=== PATIENT | female | born 1980 | race Asian ===

== ENCOUNTER 2021-09-04 07:14 | Emergency (ER) | payer OTHER, SELFPAY ==
[2021-09-04] VITALS (10 sets, daily range): BP systolic 102–132; BP diastolic 57–74; PULSE 66–80; RESP 16–18; TEMP 36.6; O2SAT 98–100; BMI 25.0
--- NOTE | 2021-09-04 07:40 | ED.LOWEXIN ---
HPI - Extremity Injury (Lower) General Chief Complaint: Extremity Injury, Lower Stated Complaint: fell and hurt right leg Time Seen by Provider: 09/04/21 07:25 Source: patient Mode of arrival: Ambulatory History of Present Illness HPI Narrative: Patient is a 41-year-old female healthy who presents with right knee pain. She said she was walking her dog this morning a big husky dog was extremely excited and knocked her down into a tree. Complaining of right knee pain mostly medial goes into her thigh as well. No hip pain difficult to ambulate no numbness or tingling she has not had anything yet for pain Related Data Previous Rx's Medication Instructions Recorded hydrocodone 5 mg-acetaminophen 325 1 tab PO Q6H PRN pain #10 tabs 09/04/21 mg tablet Allergies Allergy/AdvReac Type Severity Reaction Status Date / Time peanut Allergy Intermediate Verified 09/04/21 07:26 Review of Systems Review of Systems Narrative: GENERAL: Denies chills,fever HEENT: Denies throat pain RESPIRATORY: Denies dyspnea, cough, wheezing CARDIOVASCULAR: Denies chest pain, palpitations GASTROINTESTINAL: Denies nausea, vomiting MUSCULOSKELETAL: see HPI SKIN: No rash, no laceration, no pruritus NEUROLOGIC: Denies weakness, dizziness, headache, numbness 8 point review of systems is negative except for those stated above and HPI Patient History Social History Smoking Status: Never smoker Smoking Status: Never smoker Substance Use Type: does not use Exam Initial Vital Signs Initial Vital Signs: Vital Signs Pulse Rate 71 09/04/21 07:21 Pulse Oximetry 100 09/04/21 07:21 GENERAL: Well-appearing, well-nourished and in no acute distress. CARDIOVASCULAR: peripheral pulses in tact, cap refill <2 sec RESPIRATORY: No respiratory distress, speaks in full sentences without difficulty EXTREMITIES: Normal range of motion, no clubbing or edema. Neurovascularly intact Right lower extremity extremely tender in her right knee mostly medial tracks up into the right thigh. Knee is stable but very tender to touch. hip and pelvis are stable no ankle injury distal pedal pulse present and strong. Calf is soft NEUROLOGICAL: Cranial nerves II through XII grossly intact. Normal gait and speech. SKIN: Warm, dry, no petechiae, no rashes or lesions. Course Orders Ordered: ED Orders 09/04/21 07:44 XR knee RT 3V Stat 09/04/21 09:03 CT LE RT wo con Stat Discontinued Medications Hydromorphone HCl (Hydromorphone 2 Mg Inj) 1 mg SUBCUT NOW ONE Stop: 09/04/21 08:27 Last Admin: 09/04/21 09:09 Dose: 1 mg Documented By: HORACIO Ibuprofen (Ibuprofen 400 Mg Tablet) 800 mg PO NOW ONE Stop: 09/04/21 07:45 Last Admin: 09/04/21 07:52 Dose: 800 mg Documented By: HORACIO Vital Signs Vital signs: Vital Signs - 8 hr 09/04/21 07:27 09/04/21 07:21 09/04/21 07:22 Temperature 98 F Pulse Rate 69 71 Respiratory Rate 18 Blood Pressure 132/63 132/63 Pulse Oximetry 100 100 Oxygen Delivery Method Room Air 09/04/21 07:22 09/04/21 07:30 09/04/21 07:30 Temperature Pulse Rate 71 74 Respiratory Rate Blood Pressure 102/57 L Pulse Oximetry 100 100 Oxygen Delivery Method 09/04/21 08:00 09/04/21 08:00 09/04/21 08:30 Temperature Pulse Rate 71 Respiratory Rate Blood Pressure 110/62 117/71 Pulse Oximetry 100 Oxygen Delivery Method 09/04/21 08:30 09/04/21 09:00 09/04/21 09:01 Temperature Pulse Rate 66 74 Respiratory Rate Blood Pressure 116/57 L Pulse Oximetry 100 98 Oxygen Delivery Method 09/04/21 09:01 09/04/21 10:33 09/04/21 09:32 Temperature Pulse Rate 72 75 Respiratory Rate 16 Blood Pressure 122/74 116/63 Pulse Oximetry 98 98 Oxygen Delivery Method Room Air 09/04/21 09:32 Temperature Pulse Rate 80 Respiratory Rate Blood Pressure Pulse Oximetry 98 Oxygen Delivery Method MDM - Extremity Injury (Lower) Imaging Data Extremity x-ray #1: Radiologist's Impression: ?KapilJesus MR#: [id number] : 1980 Acct:[id number] Age/Sex: 41 / F Date of Service: 09/04/21 Loc: ED Accession Number: [id number] ?? Procedure: XR knee RT 3V Ordering Provider: Brigitte Caal D.O. PROCEDURE:? XR KNEE RT 3V ? INDICATIONS:? pain. ? TECHNIQUE:? 3 views of the knee were acquired.? ? COMPARISON:? None. ? FINDINGS:? ? Bones:? Possible cortical step-off versus artifact involving the lateral tibial plateau.? No suspicious bony lesions.? ? Soft tissues:? No joint effusion.? No suspicious soft tissue calcifications.? ? ? IMPRESSION:? Possible lateral tibial plateau fracture.? Recommend AP and lateral weight-bearing views or CT scan for additional evaluation. ? ? Dictated by: Nicole Ulrich MD, PhD on 09/04/2021 at 8:57 ? ? CT LE: Radiologist's Impression: Accession Number: [id number] ?? Procedure: CT LE RT wo con Ordering Provider: Brigitte Caal D.O. PROCEDURE:? CT LE RT WO CON ? INDICATIONS:? ?? Tibial plateau ? TECHNIQUE:? Noncontrast 1-1.5 mm axial sections acquired from the mid-patella to the proximal tibia, with coronal and sagittal reformats.? ? COMPARISON:? None. ? FINDINGS:? Image quality:? Excellent.? ? Bones:? Right knee alignment is anatomic.? No acute fracture or dislocation is seen.? No suspicious intraosseous lesion.? Mild medial femoral tibial compartment joint space narrowing and subchondral sclerosis is seen. ? Soft tissues:? There is no significant joint effusion.? No intra-articular loose bodies.? Distal quadriceps tendon and patellar tendon are intact.? Anterior and posterior cruciate ligaments are grossly intact.? No abnormal soft tissue calcifications. ? ? IMPRESSION:? 1. No acute right knee fracture or dislocation.? Radiograph finding of subtle cortical irregularity involving lateral tibial plateau likely represent a nutrient canal.? No suspicious intraosseous lesion.? Mild medial femoral tibial compartment joint space narrowing. 2. No significant joint effusion.? No abnormal soft tissue calcifications.? No gross full-thickness tendon rupture. ? ? ? Dictated by: Chuy Porras M.D. on 09/04/2021 at 9:38 ?? MDM Narrative Medical decision making narrative: Patient is having significant amount of pain medial. X-ray showed possible tibial plateau fracture however CT did not confirm any fracture. This brain a. She may actually require MRI as an outpatient. Pain is much better after knee immobilizer and pain medication. Discharge Plan Departure Patient Disposition: Home Clinical Impression: Right knee sprain Instructions: DI for Knee Sprain Activity Restrictions/Additional Instructions: *You have been diagnosed with right knee sprain *What to do: At this time no evidence of fracture. Knee brace and crutches elevate ice and pain medication. You may need an outpatient MRI if it is not getting better. Wear knee brace as needed probably for about 1-2 weeks sleep in it may shower in it if needed *Continue to take medications as directed [place] 1 tablet every 6 hours if needed for severe pain Motrin 800 mg every 8 hours if needed for [id number] pain *Follow up with your primary care provider in 2-3 days or call [phone] *Return to ER if you should have increasing pain swelling numbness tingling weakness or any new, worsening or concerning symptoms CONTROLLED SUBSTANCE DISCHARGE (Narcotoic/benzodiazepine/Flexeril/Phenergan) 1. You have been prescribed narcotic medications, it does have acetaminophen/Tylenol/paracetamol in it, DO NOT TAKE MORE THAN 4,00mg in 24 hours of Tylenol. TRAMADOL DOES NOT CONTAIN TYLENOL 2. Please understand that we cannot provide further refills of narcotics, benzodiazepines or controlled substances through the ED and her pain management will need to be through your provider. 3. While on these medications you cannot drive or operate heavy machinery. 4. You cannot sign legal documents or perform any duties such as this. 5. As long as you're taking opiate pain medications he should also be taking a stool softener such as Colace, Dulcolax, MiraLAX or prune juice, to help avoid constipation. Prescriptions: New hydrocodone-acetaminophen 5-325 mg tablet 1 tab PO Q6H PRN (Reason: pain) Qty: 10 0RF Referrals: [facility] [Provider Group] Visit Report Forms: Patient Portal/API
--- NOTE | 2021-09-04 07:44 | DI.RAD.S_ITS ---
PROCEDURE: XR KNEE RT 3V INDICATIONS: pain. TECHNIQUE: 3 views of the knee were acquired. COMPARISON: None. FINDINGS: Bones: Possible cortical step-off versus artifact involving the lateral tibial plateau. No suspicious bony lesions. Soft tissues: No joint effusion. No suspicious soft tissue calcifications. IMPRESSION: Possible lateral tibial plateau fracture. Recommend AP and lateral weight-bearing views or CT scan for additional evaluation. Dictated by: Nicole Ulrich MD, PhD on 09/04/2021 at 8:57 Approved by: Nicole Ulrich MD, PhD on 09/04/2021 at 9:00
[2021-09-04] MEDS: IBUPROFEN 400 MG TABLET 800 MG PO (07:52)
--- NOTE | 2021-09-04 09:03 | DI.CT.S_ITS ---
PROCEDURE: CT LE RT WO CON INDICATIONS: ? Tibial plateau TECHNIQUE: Noncontrast 1-1.5 mm axial sections acquired from the mid-patella to the proximal tibia, with coronal and sagittal reformats. COMPARISON: None. FINDINGS: Image quality: Excellent. Bones: Right knee alignment is anatomic. No acute fracture or dislocation is seen. No suspicious intraosseous lesion. Mild medial femoral tibial compartment joint space narrowing and subchondral sclerosis is seen. Soft tissues: There is no significant joint effusion. No intra-articular loose bodies. Distal quadriceps tendon and patellar tendon are intact. Anterior and posterior cruciate ligaments are grossly intact. No abnormal soft tissue calcifications. IMPRESSION: 1. No acute right knee fracture or dislocation. Radiograph finding of subtle cortical irregularity involving lateral tibial plateau likely represent a nutrient canal. No suspicious intraosseous lesion. Mild medial femoral tibial compartment joint space narrowing. 2. No significant joint effusion. No abnormal soft tissue calcifications. No gross full-thickness tendon rupture. Dictated by: Chuy Porras M.D. on 09/04/2021 at 9:38 Approved by: Chuy Porras M.D. on 09/04/2021 at 9:40
[2021-09-04] MEDS: HYDROMORPHONE 2 MG INJ 1 MG SUBCUT (09:09)
--- NOTE | 2021-09-04 09:11 | PC.NURSE ---
temporarily splinted knee with pillow supporting and coban wrap, temp splint to be used for ct, meds for pain being given im. knee immobilizer to be applied after ct.
== END 2021-09-04 10:50 | disposition home or self-care (01) ==
PROVIDERS: Emergency Provider Emergency Medicine
DX: S13.9XXA Sprain of joints and ligaments of unspecified parts of neck, initial encounter (principal); W19.XXXA Unspecified fall, initial encounter
CPT/HCPCS: 73562; 73700; 96372; 99283; J1170

== ENCOUNTER 2022-10-28 06:52 | Emergency (ER) | payer OTHER, SELFPAY ==
[2022-10-28 07:07] VITALS: BP 127/70; PULSE 79; RESP 16; TEMP 37; O2SAT 99; BMI 25.2
--- NOTE | 2022-10-28 07:21 | DI.US.S_ITS ---
PROCEDURE: US PELVIC COMPLETE INDICATIONS: LMP 7/5 vag bleeding TECHNIQUE: Real-time scanning was performed of the pelvic organs, with image documentation. Additional endovaginal scanning was necessary due to incomplete visualization of the adnexal and endometrial structures by transabdominal scanning. COMPARISON: None. FINDINGS: Uterus: Uterus is anteverted and normal in size at 8.3 x 6.2 x 5.1 cm. The myometrium is homogeneous. The endometrium measures 7.0 mm combined thickness. There is a focus of heterogeneous echogenicity within the mid anterior subserosal region of the uterus measuring 11 x 11 x 10 mm. Ovaries: The right ovary measures 3.9 x 2.1 x 2.4 cm. The left ovary measures 3.4 x 1.5 by 1.4 cm. There is a septated simple cyst within the right ovary measuring 1.5 x 1.5 x 1.4 cm. Other: No pathologic free abdominal or pelvic fluid. IMPRESSION: Septated right ovarian cyst. Focus of heterogeneous echogenicity within the uterus suggestive of fibroids. We strive to produce accurate, complete, and clear reports of imaging services. To assist us in improving patient care, this report was composed using standard report templates and voice recognition software. Therefore, it may contain abnormal punctuation, insertions and/or omissions. Occasional wrong-word or sound-alike substitutions may occur. Though we review the report and make efforts to correct it, we do recommend that the report be read carefully in proper context to recognize any text inaccuracies. Dictated by: Dominique Newton M.D. on 10/28/2022 at 8:32 Approved by: Dominique Newton M.D. on 10/28/2022 at 8:34
[2022-10-28 07:48] LABS: Add Manual Diff / Slide Review NO; Basophils Absolute Auto 0 /uL (0-100); Basophils Percent Auto 0.4 % (0-2); Eosinophils Absolute Auto 200 /uL (0-450); Eosinophils Percent Auto 1.7 % (2-4); Hematocrit 40.6 % (36-46); Hemoglobin 13.7 g/dL (12.0-16.0); Lymphocytes Absolute Auto 2100 /uL (1100-4500); Lymphocytes Percent Auto 22.2 % (25-40); Mean Corpuscular HGB Conc 33.8 % (30-36); Mean Corpuscular Hemoglobin 29.9 PG (26-34); Mean Corpuscular Volume 88.6 fL (80-100); Monocytes Absolute Auto 600 /uL (0-900); Monocytes Percent Auto 6.7 % (3-14); Neutrophils Absolute Auto 6600 /uL (1500-7000); Platelet Count 297 X10^3/uL (150-400); Red Blood Cell Count 4.59 X10^6/uL (4.0-5.2); Red Cell Distribution Width 13.7 % (11.6-14.8); White Blood Cell Count 9.6 X10^3/uL (4.5-11.0)
--- NOTE | 2022-10-28 08:00 | ED_ITS ---
HPI - Female Genitourinary General Chief complaint: OB/Uterine Contractions Stated complaint: heavy menstral bleeding, ABD pain Time Seen by Provider: 10/28/22 07:06 Mode of arrival: Family Vehicle History of Present Illness HPI Narrative: Patient is a healthy 42-year-old female presenting today with vaginal bleeding in early . She reports that she found out she was and a home test 2 weeks ago. This yesterday she started having some spotting and today pretty heavy vaginal bleeding and passed some tissue. She is having some cramping she is quite tearful. No dizziness or lightheadedness. Related Data Previous Rx's Medication Instructions Recorded hydrocodone 5 mg-acetaminophen 325 1 tab PO Q6H PRN pain #10 tabs 09/04/21 mg tablet cephalexin 500 mg capsule 500 mg PO BID 5 days #10 caps 10/28/22 Allergies Allergy/AdvReac Type Severity Reaction Status Date / Time peanut Allergy Intermediate Verified 10/28/22 07:10 Review of Systems Review of Systems ROS Unobtainable: All systems reviewed & are unremarkable except as noted in HPI and below Patient History Substance Use Type: does not use Exam Initial Vital Signs Initial Vital Signs: Vital Signs Temperature 98.6 F 10/28/22 07:07 Pulse Rate 79 10/28/22 07:07 Respiratory Rate 16 10/28/22 07:07 Blood Pressure 127/70 10/28/22 07:07 Pulse Oximetry 99 10/28/22 07:07 Oxygen Delivery Method Room Air 10/28/22 07:07 GENERAL: Alert tearful 42-year-old female and in no acute distress. HEENT: Head atraumatic,EOMI, pupils reactive, face symmetric, moist mucous membranes CARDIOVASCULAR: Regular rate and rhythm without murmurs, rubs or gallops. RESPIRATORY: Breath sounds equal bilaterally, no wheezes rales or rhonchi. ABDOMEN: Soft, nontender. Normoactive bowel sounds all 4 quadrants. No g uarding or rebound. Mild lower abdominal pain and tenderness EXTREMITIES: Normal range of motion, no clubbing or edema. Neurovascularly intact NEUROLOGICAL: Alert and oriented x4. SKIN: Warm, dry, no laceration, no petechiae, no rashes or lesions. Course Orders Ordered: Discontinued Medications Morphine Sulfate (Morphine 2 Mg/Ml Inj) 2 mg IV NOW ONE Stop: 10/28/22 07:30 Vital Signs Vital signs: Vital Signs - 8 hr 10/28/22 07:07 Temperature 98.6 F Pulse Rate 79 Respiratory Rate 16 Blood Pressure 127/70 Pulse Oximetry 99 Oxygen Delivery Method Room Air MDM - Female Genitourinary Lab Data 10/28/22 07:38 10/28/22 07:38 Labs: Lab Results 10/28/22 10/28/22 10/28/22 Range/Units 07:38 07:38 07:38 WBC 9.6 (4.5-11.0) X10^3/uL RBC 4.59 (4.0-5.2) X10^6/uL Hgb 13.7 (12.0-16.0) g/dL Hct 40.6 (36-46) % MCV 88.6 (80-100) fL MCH 29.9 (26-34) PG MCHC 33.8 (30-36) % RDW 13.7 (11.6-14.8) % Plt Count 297 (150-400) X10^3/uL Neut % (Auto) 69.0 (50-75) % Lymph % (Auto) 22.2 L (25-40) % [place] % (Auto) 6.7 (3-14) % Eos % (Auto) 1.7 L (2-4) % Baso % (Auto) 0.4 (0-2) % Neut # (Auto) 6600 (0753-3585) /uL Lymph # (Auto) 2100 (1481-2828) /uL [place] # (Auto) 600 (0-900) /uL Eos # (Auto) 200 (0-450) /uL Baso # (Auto) 0 (0-100) /uL Sodium 137 (137-145) mmol/L Potassium 3.7 (3.4-5.1) mmol/L Chloride 105 (98-107) mmol/L Carbon Dioxide 22 (22-32) mmol/L BUN 9 (7-17) mg/dL Creatinine 0.66 (0.52-1.04) mg/dL Estimated GFR > 60 (>60) mL/min BUN/Creatinine Ratio 13.6 (6-22) Glucose 101 H (70-100) mg/dL Calcium 8.9 (8.4-10.2) mg/dL Total Bilirubin 0.4 (0.2-1.3) mg/dL AST 24 (14-36) IU/L ALT 16 (<35) IU/L Alkaline Phosphatase 80 (38-126) U/L Total Protein 8.0 (6.3-8.2) g/dL Albumin 4.6 (3.5-5.0) g/dL Globulin 3.4 (1.7-4.1) g/dL Albumin/Globulin Ratio 1.4 (1.0-2.8) HCG, Quant 2211.7 mIU/mL Urine RBC (0-5/HPF) Urine WBC (0-5/HPF) Ur Squamous Epith Cells (0-5/HPF) Urine Bacteria (None) Ur Culture Indicated? Blood Type O Positive Antibody Screen Negative 10/28/22 Range/Units 09:00 WBC (4.5-11.0) X10^3/uL RBC (4.0-5.2) X10^6/uL Hgb (12.0-16.0) g/dL Hct (36-46) % MCV (80-100) fL MCH (26-34) PG MCHC (30-36) % RDW (11.6-14.8) % Plt Count (150-400) X10^3/uL Neut % (Auto) (50-75) % Lymph % (Auto) (25-40) % [place] % (Auto) (3-14) % Eos % (Auto) (2-4) % Baso % (Auto) (0-2) % Neut # (Auto) (3957-3983) /uL Lymph # (Auto) (4604-3431) /uL [place] # (Auto) (0-900) /uL Eos # (Auto) (0-450) /uL Baso # (Auto) (0-100) /uL Sodium (137-145) mmol/L Potassium (3.4-5.1) mmol/L Chloride (98-107) mmol/L Carbon Dioxide (22-32) mmol/L BUN (7-17) mg/dL Creatinine (0.52-1.04) mg/dL Estimated GFR (>60) mL/min BUN/Creatinine Ratio (6-22) Glucose (70-100) mg/dL Calcium (8.4-10.2) mg/dL Total Bilirubin (0.2-1.3) mg/dL AST (14-36) IU/L ALT (<35) IU/L Alkaline Phosphatase (38-126) U/L Total Protein (6.3-8.2) g/dL Albumin (3.5-5.0) g/dL Globulin (1.7-4.1) g/dL Albumin/Globulin Ratio (1.0-2.8) HCG, Quant mIU/mL Urine RBC 0-1/hpf (0-5/HPF) Urine WBC 0-1/hpf (0-5/HPF) Ur Squamous Epith Cells 0-1 /hpf (0-5/HPF) Urine Bacteria Many (>30) H (None) Ur Culture Indicated? Specimen cultured Blood Type Antibody Screen Urine Dip Bedside Urine Occult Blood + Bedside Urine pH 6 Bedside Urine Nitrite + Positive Imaging Data US - OB: Radiologist's Impression: PROCEDURE:? US PELVIC COMPLETE ? INDICATIONS:? LMP 7/5 vag bleeding ? TECHNIQUE:? Real-time scanning was performed of the pelvic organs, with image documentation.? Additional endovaginal scanning was necessary due to incomplete visualization of the adnexal and endometrial structures by transabdominal scanning.? ? COMPARISON:? None. ? FINDINGS:? ?? Uterus:? Uterus is anteverted and normal in size at 8.3 x 6.2 x 5.1 cm. The myometrium is homogeneous. ? The endometrium measures 7.0 mm combined thickness.? There is a focus of heterogeneous echogenicity within the mid anterior subserosal region of the uterus measuring 11 x 11 x 10 mm. ? Ovaries:? The right ovary measures 3.9 x 2.1 x 2.4 cm. The left ovary measures 3.4 x 1.5 by 1.4 cm.? There is a septated simple cyst within the right ovary measuring 1.5 x 1.5 x 1.4 cm. ? Other:? No pathologic free abdominal or pelvic fluid. ? ? IMPRESSION:? Septated right ovarian cyst. ? Focus of heterogeneous echogenicity within the uterus suggestive of fibroids. ? We strive to produce accurate, complete, and clear reports of imaging services. To assist us in improving patient care, this report was composed using standard report templates and voice recognition software. Therefore, it may contain abnormal punctuation, insertions and/or omissions. Occasional wrong-word or sound-alike substitutions may occur. Though we review the report and make efforts to correct it, we do recommend that the report be read carefully in proper context to recognize any text inaccuracies. ? ? Dictated by: Dominique Newton M.D. on 10/28/2022 at 8:32 ? ? Approved by: Dominique Newton M.D. on 10/28/2022 at 8:34 ? MDM Narrative Medical decision making narrative: Patient 42-year-old female presents today with probable miscarriage. She passed tissue hCG today is 2211, ultrasound does not show any IUP or ectopic. But does show a right ovarian cyst. She has minimal pain she reports that bleeding has subsided significantly. Vitals are stable. She does have nitrates in her urine will see her for a UTI. She is O positive no need for RhoGAM today. Recommend that she have repeat hCG as an outpatient. Discharge Plan Departure Patient Disposition: Home Clinical Impression: Complete miscarriage, UTI (urinary tract infection) Instructions: DI for Miscarriage, DI for Urinary Tract Infection (UTI) Activity Restrictions/Additional Instructions: HCG 2211 *You have been diagnosed with miscarriage, UTI *What to do: I am so sorry for your loss. You may continue to have some bleeding and cramping Need HCG repeated in 48 hours *Continue to take medications as directed Tylenol 1000 mg every 6 hours Motrin 600 mg every 6 hours Cephalexin 500 mg twice a day for 5 days *Follow up with your primary care provider in 2-3 days or call [phone] *Return to ER if you should have persistent bleeding more than 2 super pads in 1 hour, dizziness lightheadedness severe pain or any new, worsening or concerning symptoms Prescriptions: New cephalexin 500 mg capsule 500 mg PO BID 5 Days Qty: 10 0RF No Action hydrocodone-acetaminophen 5-325 mg tablet 1 tab PO Q6H PRN (Reason: pain) Qty: 10 0RF Referrals: Cherise Melchor PA-C [Primary Care Provider] - Stand Alone Forms: Patient Portal/API, Work Release Note
[2022-10-28 08:04] LABS: Alanine Aminotransferase 16 IU/L (<35); Albumin 4.6 g/dL (3.5-5.0); Albumin Globulin Ratio 1.4 (1.0-2.8); Alkaline Phosphatase 80 U/L (38-126); Aspartate Aminotransferase 24 IU/L (14-36); BUN Creatinine Ratio 13.6 (6-22); Bilirubin Total 0.4 mg/dL (0.2-1.3); Blood Urea Nitrogen 9 mg/dL (7-17); Calcium 8.9 mg/dL (8.4-10.2); Carbon Dioxide 22 mmol/L (22-32); Chloride 105 mmol/L (98-107); Estimated Glomerular Filt Rate > 60 mL/min (>60); Globulin 3.4 g/dL (1.7-4.1); Glucose 101 mg/dL (70-100); HEMOLYSIS < 15 (0-50); Potassium 3.7 mmol/L (3.4-5.1); Sodium 137 mmol/L (137-145)
[2022-10-28 08:21] LABS: HCG Quantitative /Beta subunit 2211.7 mIU/mL
[2022-10-28 09:53] VITALS: BP 135/67; PULSE 68; RESP 14
[2022-10-28 11:22] LABS: Bacteria Urine Many (>30); Culture Indicated Urine Specimen Cultured; RBC Urine 0-1/HPF (0-5/HPF); Squamous Epithelial Cell Urine 0-1 /HPF (0-5/HPF); WBC Urine 0-1/HPF (0-5/HPF)
== END 2022-10-28 09:55 | disposition home or self-care (01) ==
PROVIDERS: Emergency Provider Emergency Medicine; PCP Physician Assistant Medical
DX: O03.9 Complete or unspecified spontaneous abortion without complication (principal); N39.0 Urinary tract infection, site not specified
CPT/HCPCS: 36415; 76830; 76856; 80053; 81003; 81015; 84702; 85025; 86850; 86900; 86901; 87077; 87086; 87186; 99284

== ENCOUNTER 2023-06-23 15:46 | Emergency (ER) | payer OTHER, SELFPAY ==
[2023-06-23 15:56] VITALS: BP 121/72; PULSE 80; RESP 18; TEMP 36.8; O2SAT 100; BMI 25.6
--- NOTE | 2023-06-23 16:06 | DI.US.S_ITS ---
PROCEDURE: US OB <= 14 WEEKS FETUS INDICATIONS: approx 8-10 weeks, vag bleeding OUTSIDE/PRIOR DATING DATA: Last menstrual period (LMP): 04/02/2023. LMP-based estimated date of delivery (MARLEEN): 01/07/2024. First dating scan (date and location): Not available. TECHNIQUE: Real-time scanning was performed of the fetus and maternal pelvic organs, with image documentation. Endovaginal scanning was also performed to better visualize the fetus and maternal ovaries. COMPARISON: US, US PELVIC COMPLETE, 10/28/2022, 7:40. FINDINGS: Embryo: There is a small intrauterine gestational sac. The estimated gestational age is 5 weeks 6 days. No pole is present. Maternal organs: Right ovary is grossly normal. There is a 1.5 cm left paraovarian cyst. No free fluid in pelvis. IMPRESSION: 1. There is a small intrauterine destinational sac. No pole is present. The estimated gestational age based on the MGSD is 5 weeks 6 days. Based on the LMP, the estimated gestational age is 11 weeks 5 days. Differential diagnoses are early intrauterine versus blighted ovum. Please correlate clinically. 2. A 1.5 cm left paraovarian cyst. We strive to produce accurate, complete, and clear reports of imaging services. To assist us in improving patient care, this report was composed using standard report templates and voice recognition software. Therefore, it may contain abnormal punctuation, insertions and/or omissions. Occasional wrong-word or sound-alike substitutions may occur. Though we review the report and make efforts to correct it, we do recommend that the report be read carefully in proper context to recognize any text inaccuracies. Dictated by: Bernarda Waddell M.D. on 06/23/2023 at 19:12 Approved by: Bernarda Waddell M.D. on 06/23/2023 at 19:16
[2023-06-23 16:32] LABS: Add Manual Diff / Slide Review NO; Basophils Absolute Auto 0 /uL (0-100); Basophils Percent Auto 0.4 % (0-2); Eosinophils Absolute Auto 100 /uL (0-450); Eosinophils Percent Auto 1.5 % (2-4); Hematocrit 41.6 % (36-46); Lymphocytes Absolute Auto 2400 /uL (1100-4500); Lymphocytes Percent Auto 33.1 % (25-40); Mean Corpuscular HGB Conc 33.7 % (30-36); Mean Corpuscular Hemoglobin 29.6 PG (26-34); Mean Corpuscular Volume 87.9 fL (80-100); Monocytes Absolute Auto 400 /uL (0-900); Monocytes Percent Auto 5.3 % (3-14); Neutrophils Absolute Auto 4300 /uL (1500-7000); Neutrophils Percent Auto 59.7 % (50-75); Platelet Count 370 X10^3/uL (150-400); Red Blood Cell Count 4.73 X10^6/uL (4.0-5.2); Red Cell Distribution Width 13.4 % (11.6-14.8); White Blood Cell Count 7.3 X10^3/uL (4.5-11.0)
[2023-06-23 16:41] LABS: Alanine Aminotransferase 16 IU/L (<35); Albumin 4.7 g/dL (3.5-5.0); Albumin Globulin Ratio 1.4 (1.0-2.8); Alkaline Phosphatase 70 U/L (38-126); Aspartate Aminotransferase 23 IU/L (14-36); BUN Creatinine Ratio 15.9 (6-22); Bilirubin Total 0.5 mg/dL (0.2-1.3); Blood Urea Nitrogen 10 mg/dL (7-17); Calcium 9.2 mg/dL (8.4-10.2); Carbon Dioxide 26 mmol/L (22-32); Chloride 103 mmol/L (98-107); Estimated Glomerular Filt Rate > 60 mL/min (>60); Globulin 3.4 g/dL (1.7-4.1); Glucose 143 mg/dL (70-100); HEMOLYSIS < 15 (0-50); Potassium 3.3 mmol/L (3.4-5.1); Sodium 137 mmol/L (137-145); Total Protein 8.1 g/dL (6.3-8.2)
[2023-06-23 16:57] LABS: HCG Quantitative /Beta subunit 3643.5 mIU/mL
--- NOTE | 2023-06-23 18:03 | ED_ITS ---
HPI - <Kandy Vergara PA-C - Last Filed: 06/23/23 19:31> General Chief complaint: Vaginal Bleeding Stated complaint: 18 weeks , bleeding and cramping Time Seen by Provider: 06/23/23 17:10 Source: patient Mode of arrival: Ambulatory Limitations: no limitations History of Present Illness HPI Narrative: Patient is a 43-year-old female presenting for evaluation of concern for vaginal bleeding. She is G3 with one 21 yo living son, and 1 miscarriage October 2022. Denies abdominal pain at present. She endorses fever of 101 F this morning and states she has had a cough for the last 5 days. She denies any nausea or vomiting nor chills or body aches. She endorses nasal congestion and has slight headache and some abdominal cramping when she coughs. She reports that she has been having bright red vaginal bleeding x 1 day with some clots, but states it has not filled up a pad. She had a miscarriage last October. She was tested at that time and noted to be O positive. Related Data Previous Rx's Medication Instructions Recorded hydrocodone 5 mg-acetaminophen 325 1 tab PO Q6H PRN pain #10 tabs 09/04/21 mg tablet Allergies Allergy/AdvReac Type Severity Reaction Status Date / Time peanut Allergy Intermediate Verified 10/28/22 07:10 Review of Systems <Kandy Vergara PA-C - Last Filed: 06/23/23 19:31> Review of Systems Narrative: See HPI Exam <Kandy Vergara PA-C - Last Filed: 06/23/23 19:31> Initial Vital Signs Initial Vital Signs: Vital Signs Temperature 98.2 F 06/23/23 15:56 Pulse Rate 80 06/23/23 15:56 Respiratory Rate 18 06/23/23 15:56 Blood Pressure 121/72 06/23/23 15:56 Pulse Oximetry 100 06/23/23 15:56 Oxygen Delivery Method Room Air 06/23/23 15:56 GENERAL: 43 year old patient appears stated age. Well-developed patient, in no acute distress. HEAD: Atraumatic. Normocephalic. EYES: Pupils equal round CARDIOVASCULAR: Regular rate and rhythm without murmurs, gallops, or rubs. RESPIRATORY: Clear to auscultation. Breath sounds equal bilaterally. No wheezes, rales, or rhonchi. GASTROINTESTINAL: Abdomen soft, non-tender, nondistended. nontender over suprapubic area, no CVA tenderness BACK: Nontender without deformity or crepitance. No flank tenderness. NEURO: AOx3. SKIN: No rash or erythema of visible areas <Lien Lanier MD - Last Filed: 06/23/23 20:18> Initial Vital Signs Initial Vital Signs: Vital Signs Temperature 98.2 F 06/23/23 15:56 Pulse Rate 80 06/23/23 15:56 Respiratory Rate 18 06/23/23 15:56 Blood Pressure 121/72 06/23/23 15:56 Pulse Oximetry 100 06/23/23 15:56 Oxygen Delivery Method Room Air 06/23/23 15:56 Course <Kandy Vergara PA-C - Last Filed: 06/23/23 19:31> Orders Ordered: ED Orders 06/23/23 16:06 US OB <= 14 weeks fetus Stat 06/23/23 16:09 Urine Microscopic Stat 06/23/23 16:16 Complete Blood Count AUTO DIFF Stat Comprehensive Metabolic Panel Stat HCG Quantitative /Beta subunit Stat Type and Screen Stat Vital Signs Vital signs: Vital Signs - 8 hr 06/23/23 15:56 Temperature 98.2 F Pulse Rate 80 Respiratory Rate 18 Blood Pressure 121/72 Pulse Oximetry 100 Oxygen Delivery Method Room Air <Lien Lanier MD - Last Filed: 06/23/23 20:18> Orders Ordered: ED Orders 06/23/23 16:06 US OB <= 14 weeks fetus Stat 06/23/23 16:09 Urine Microscopic Stat 06/23/23 16:16 Complete Blood Count AUTO DIFF Stat Comprehensive Metabolic Panel Stat HCG Quantitative /Beta subunit Stat Type and Screen Stat Vital Signs Vital signs: Vital Signs - 8 hr 06/23/23 15:56 Temperature 98.2 F Pulse Rate 80 Respiratory Rate 18 Blood Pressure 121/72 Pulse Oximetry 100 Oxygen Delivery Method Room Air MDM - OB/Uterine Contractions <Kandy Vergara PA-C - Last Filed: 06/23/23 19:31> Lab Data 06/23/23 16:16 06/23/23 16:16 Labs: Lab Results 06/23/23 06/23/23 Range/Units 16:09 16:16 WBC 7.3 (4.5-11.0) X10^3/uL RBC 4.73 (4.0-5.2) X10^6/uL Hgb 14.0 (12.0-16.0) g/dL Hct 41.6 (36-46) % MCV 87.9 (80-100) fL MCH 29.6 (26-34) PG MCHC 33.7 (30-36) % RDW 13.4 (11.6-14.8) % Plt Count 370 (150-400) X10^3/uL Neut % (Auto) 59.7 (50-75) % Lymph % (Auto) 33.1 (25-40) % [place] % (Auto) 5.3 (3-14) % Eos % (Auto) 1.5 L (2-4) % Baso % (Auto) 0.4 (0-2) % Neut # (Auto) 4300 (2003-7586) /uL Lymph # (Auto) 2400 (1378-7818) /uL [place] # (Auto) 400 (0-900) /uL Eos # (Auto) 100 (0-450) /uL Baso # (Auto) 0 (0-100) /uL Sodium 137 (137-145) mmol/L Potassium 3.3 L (3.4-5.1) mmol/L Chloride 103 (98-107) mmol/L Carbon Dioxide 26 (22-32) mmol/L BUN 10 (7-17) mg/dL Creatinine 0.63 (0.52-1.04) mg/dL Estimated GFR > 60 (>60) mL/min BUN/Creatinine Ratio 15.9 (6-22) Glucose 143 H (70-100) mg/dL Calcium 9.2 (8.4-10.2) mg/dL Total Bilirubin 0.5 (0.2-1.3) mg/dL AST 23 (14-36) IU/L ALT 16 (<35) IU/L Alkaline Phosphatase 70 (38-126) U/L Total Protein 8.1 (6.3-8.2) g/dL Albumin 4.7 (3.5-5.0) g/dL Globulin 3.4 (1.7-4.1) g/dL Albumin/Globulin Ratio 1.4 (1.0-2.8) HCG, Quant 3643.5 mIU/mL Urine RBC 1-5/hpf (0-5/HPF) Urine WBC 0-1/hpf (0-5/HPF) Ur Squamous Epith Cells 0-1 /hpf (0-5/HPF) Urine Bacteria Occasional (0-1) (None) Ur Culture Indicated? Cult not indicated Vol Urine Centrifuged 10ml (spun) Blood Type O Positive Antibody Screen Negative Urine Dip Bedside Urine Glucose Negative Bedside Urine Bilirubin - Negative Bedside Urine Ketone - Negative Urine Specific [place] 1.020 Bedside Urine Occult Blood +++ Bedside Urine pH 6.0 Bedside Urine Protein - Negative Bedside Urine Urobilinogen - Negative Bedside Urine Nitrite - Negative Bedside Urine Leukocytes - Negative Esterase MDM Narrative Medical decision making narrative: Patient is a 43-year-old female coming in for evaluation due to vaginal bleeding x3 days. Her bleeding started off brown, then progressed to bright red blood today. She states that it was dripping. Blood work shows HCT leave 3644, no evidence of infection in urinalysis. Review of chart from October 2022 shows patient is O positive. No RhoGAM needed. No abnormalities on CBC or CMP. Physical exam is reassuring, patient is nontender on examination. Multiple etiologies for patient's symptoms considered including, but not limited to: Miscarriage, UTI Prior Charts reviewed: Labs reviewed and interpreted by myself: HCG is 3643, O-positive blood type, Imaging reviewed: Pelvic ultrasound, preliminary report reviewed with Dr. Lanier, notes no presence of yolk sac, pulse, heart tones, leading to possible early gestation versus blighted ovum. No report of ectopic . Review of ultrasound final results indicates there is a small intrauterine gestational sac. No evidence of ectopic . Recommend Consultations: Recommend patient return home, follow up with gyn or to the ER for serial HCGs to be repeated in 48-72 hours to confirm viable and continued follow up with gyn. Recommend she treat cramping as needed with Tylenol. Discussed ER return precautions to include increased vaginal bleeding, increased abdominal pain, nausea vomiting, fever, malaise or other concerning signs or symptoms. Findings and discharge diagnosis discussed with patient/family followed by verbalization of understanding Return precautions discussed with patient/family whom verbalize understanding of diagnosis and plan <Lien Lanier MD - Last Filed: 06/23/23 20:18> Lab Data Labs: Lab Results 06/23/23 06/23/23 Range/Units 16:09 16:16 WBC 7.3 (4.5-11.0) X10^3/uL RBC 4.73 (4.0-5.2) X10^6/uL Hgb 14.0 (12.0-16.0) g/dL Hct 41.6 (36-46) % MCV 87.9 (80-100) fL MCH 29.6 (26-34) PG MCHC 33.7 (30-36) % RDW 13.4 (11.6-14.8) % Plt Count 370 (150-400) X10^3/uL Neut % (Auto) 59.7 (50-75) % Lymph % (Auto) 33.1 (25-40) % [place] % (Auto) 5.3 (3-14) % Eos % (Auto) 1.5 L (2-4) % Baso % (Auto) 0.4 (0-2) % Neut # (Auto) 4300 (2345-1949) /uL Lymph # (Auto) 2400 (7242-4913) /uL [place] # (Auto) 400 (0-900) /uL Eos # (Auto) 100 (0-450) /uL Baso # (Auto) 0 (0-100) /uL Sodium 137 (137-145) mmol/L Potassium 3.3 L (3.4-5.1) mmol/L Chloride 103 (98-107) mmol/L Carbon Dioxide 26 (22-32) mmol/L BUN 10 (7-17) mg/dL Creatinine 0.63 (0.52-1.04) mg/dL Estimated GFR > 60 (>60) mL/min BUN/Creatinine Ratio 15.9 (6-22) Glucose 143 H (70-100) mg/dL Calcium 9.2 (8.4-10.2) mg/dL Total Bilirubin 0.5 (0.2-1.3) mg/dL AST 23 (14-36) IU/L ALT 16 (<35) IU/L Alkaline Phosphatase 70 (38-126) U/L Total Protein 8.1 (6.3-8.2) g/dL Albumin 4.7 (3.5-5.0) g/dL Globulin 3.4 (1.7-4.1) g/dL Albumin/Globulin Ratio 1.4 (1.0-2.8) HCG, Quant 3643.5 mIU/mL Urine RBC 1-5/hpf (0-5/HPF) Urine WBC 0-1/hpf (0-5/HPF) Ur Squamous Epith Cells 0-1 /hpf (0-5/HPF) Urine Bacteria Occasional (0-1) (None) Ur Culture Indicated? Cult not indicated Vol Urine Centrifuged 10ml (spun) Blood Type O Positive Antibody Screen Negative Urine Dip Bedside Urine Glucose Negative Bedside Urine Bilirubin - Negative Bedside Urine Ketone - Negative Urine Specific [place] 1.020 Bedside Urine Occult Blood +++ Bedside Urine pH 6.0 Bedside Urine Protein - Negative Bedside Urine Urobilinogen - Negative Bedside Urine Nitrite - Negative Bedside Urine Leukocytes - Negative Esterase Discharge Plan Departure Patient Disposition: Home Clinical Impression: Vaginal bleeding Activity Restrictions/Additional Instructions: *You have been diagnosed with vaginal bleeding. Ultrasound showed possibility of early intrauterine versus miscarriage. Please return to your medical assistant ob gyn in 48-72 hours for serial HCGs to be drawn to indicate whether your hCG level is increasing or decreasing. Your hCG level today was 3644 on 06/22 at 4:16 p.m. if you experience increased cramping, you may take Tylenol instead of ibuprofen. I recommend that you decrease activity and do light activity as tolerated until follow up with gyn. * please follow up in the ER if you should develop increased bleeding, increased abdominal cramping, dizziness, fever severe pain or other concerning signs or symptoms. Please call your medical assistant ob gyn tomorrow and request an appointment this week for follow up. *If you do not have a provider please contact the [facility] Resource line at [phone]. They will ask some questions about your medical history and help get you set up with a doctor in the community. It was a pleasure meeting you today. Prescriptions: No Action hydrocodone-acetaminophen 5-325 mg tablet 1 tab PO Q6H PRN (Reason: pain) Qty: 10 0RF Referrals: Cherise Melchor PA-C [Primary Care Provider] - Stand Alone Forms: Patient Portal/API ED Sign-out <Lien Lanier MD - Last Filed: 06/23/23 20:18> Cosign ED Attending Cosignature Attestation: I did not see this patient. I was available all times for consultation.
[2023-06-23 20:12] LABS: Bacteria Urine Occasional (0-1); Culture Indicated Urine Cult Not Indicated; RBC Urine 1-5/HPF (0-5/HPF); Squamous Epithelial Cell Urine 0-1 /HPF (0-5/HPF); Urine Volume 10mL (spun); WBC Urine 0-1/HPF (0-5/HPF)
== END 2023-06-23 19:30 | disposition home or self-care (01) ==
PROVIDERS: Emergency Medicine; Emergency Provider Physician Assistant; PCP Physician Assistant Medical
DX: O46.92 Antepartum hemorrhage, unspecified, second trimester (principal); R50.9 Fever, unspecified; Z3A.18 18 weeks gestation of pregnancy
CPT/HCPCS: 36415; 76801; 76817; 80053; 81003; 81015; 84702; 85025; 86850; 86900; 86901; 99284